=== PATIENT | male | born 1995 | race African-American/Black ===

== ENCOUNTER 2017-05-06 05:02 | Emergency (ER) | payer SELFPAY ==
[~2017-05-06] VITALS: Ht 175.3 cm; Wt 70.0 kg
[2017-05-06 05:03] VITALS: BP 112/52
== END 2017-05-06 08:46 | disposition left against medical advice (07) ==
LOC: ER 05:02
DX: R10.9 Unspecified abdominal pain (principal); Z53.21 Procedure and treatment not carried out due to patient leaving prior to being seen by health care provider